=== PATIENT | female | born 1990 | race Caucasian/White ===

== ENCOUNTER 2016-10-11 08:10 | Emergency (ER) | payer SELFPAY ==
[~2016-10-11] VITALS: Ht 162.6 cm; Wt 92.5 kg
[~2016-10-11 08:10] MED LIST: FERROUS SULFAT325 MG PO; FERROUS SULFATE65 MG PO; IRON325 M2 PO; MOTRIN400 MG PO; PRENATAL VITAMI1 T10 PO
[2016-10-11 08:11] VITALS: BP 150/109
--- NOTE | 2016-10-11 08:13 | NUR ---
EKG completed by EMT in triage room.
--- NOTE | 2016-10-11 08:15 | NUR ---
Patient ambulated to bed 2. RN evaluating patient at bedside.
[2016-10-11] MEDS ORDERED: ASPIRIN 325 MG TAB PO ONE (08:20)
--- NOTE | 2016-10-11 08:20 | NUR ---
Dr. Kiser evaluating patient at bedside.
--- NOTE | 2016-10-11 08:20 | NUR ---
PATIENT PRESENTS TO ED WITH LEFT SIDED CHEST PAIN X1 WK RADIATING LEFT SHOULDER AND BACK PER PT--PRESSURE TYPE PAIN---DENIES TRAUMA OR INJURY . PT STATES WAS SEEN BY PMD BUT PAIN PERSIST . DENIES N/V/D; SKIN IS PINK/WARM/DRY; AAOX4 WITH EVEN AND STEADY GAIT; LUNGS CLEAR BL; HR EVEN AND REGULAR; PT DENIES ANY FEVER, CP, SOB, OR COUGH AT THIS TIME; PATIENT STATES PAIN OF 8/10 AT THIS TIME; VSS; PATIENT POSITIONED FOR COMFORT; HOB ELEVATED; BEDRAILS UP X2; BED DOWN. ER MD MADE AWARE OF PT STATUS.
--- NOTE | 2016-10-11 08:26 | NUR ---
sterile preparation technician at bedside for CXR.
--- NOTE | 2016-10-11 08:33 | NUR ---
X-Ray at bedside.
--- NOTE | 2016-10-11 09:15 | NUR ---
PT DENIES CP AT THIS TIME---NOW STATING SHE FEELS PAIN UNDER RIGHT BREAST --RIBS SHARP--- A/O X4 FULL CLEAR SPEECH, DENIES SOB---AWAITS LAB RESULTS
--- NOTE | 2016-10-11 10:15 | NUR ---
AMBULATORY TO AND FROM RESTROOM WITH STEADY GAIT---DENIES SOB, NO CP, NO HEADACHE--MD NOTIFIED.
--- NOTE | 2016-10-11 10:30 | NUR ---
SPOKE WITH PT---DC HOME
[2016-10-11 10:56] VITALS: BP 126/78
== END 2016-10-11 10:54 | disposition home or self-care (01) ==
LOC: MED 08:21
PROC: 4A02X4Z Measurement of Cardiac Electrical Activity, External Approach (ICD-10-PCS; principal; 2016-10-11)
DX: R07.89 Other chest pain (principal); F41.9 Anxiety disorder, unspecified; Z87.19 Personal history of other diseases of the digestive system; Z32.02 Encounter for pregnancy test, result negative

== ENCOUNTER 2017-01-14 05:35 | Emergency (ER) | payer MEDICAID ==
[~2017-01-14] VITALS: Ht 162.6 cm; Wt 90.8 kg
[2017-01-14 05:52] VITALS: BP 139/80
--- NOTE | 2017-01-14 06:04 | NUR ---
PT IS 26/F BIB SELF TO ED WITH C/O L UPPER ABD PAIN WHICH RADIATES TO CHEST TO LEFT ARM AND BACK X 1 WK.. PT STATES NO MED HX. DENIES N/V/D; SKIN IS PINK/WARM/DRY; AAOX4 WITH EVEN AND STEADY GAIT; LUNGS CLEAR BL; HR EVEN AND REGULAR; PT DENIES ANY FEVER, CP, SOB, OR COUGH AT THIS TIME; PATIENT STATES PAIN OF 8/10 AT THIS TIME; VSS; PATIENT POSITIONED FOR COMFORT; HOB ELEVATED; BEDRAILS UP X2; BED DOWN. ER MD MADE AWARE OF PT STATUS.
--- NOTE | 2017-01-14 06:04 | NUR ---
PT TAKEN TO BED 8
[2017-01-14] MEDS ORDERED: KETOROLAC 60 MG/2 ML VIAL IM ONE (06:10)
[2017-01-14] MEDS ORDERED: FAMOTIDINE 20 MG TAB PO ONE (06:10)
[2017-01-14] MEDS ORDERED: ONDANSETRON 4 MG ODT PO ONE (06:10)
--- NOTE | 2017-01-14 06:10 | NUR ---
Dr. Todd evaluating patient at bedside.
[2017-01-14 06:35] LABS: BASOPHILS # (AUTO) 0.2 K/uL (0.00-0.22); BASOPHILS % (AUTO) 2.7 % (0.0-2.0); EOSINOPHILS # (AUTO) 0.1 K/uL (0-0.4); EOSINOPHILS % (AUTO) 2.1 % (0.0-4.0); HEMOGLOBIN 9.3 g/dL (12.0-16.0); LYMPHOCYTES # (AUTO) 1.9 K/uL (2.5-16.5); LYMPHOCYTES % (AUTO) 33.7 % (20.5-51.1); MEAN CORPUSCULAR HEMOGLOBIN 30 pg (27-31); MEAN CORPUSCULAR HGB CONC 33 g/dL (33-37); MEAN CORPUSCULAR VOLUME 90 fL (80-94); MONOCYTES # (AUTO) 0.4 K/uL (0.8-1.0); MONOCYTES % (AUTO) 7.5 % (1.7-9.3); NEUTROPHILS # (AUTO) 3.1 K/uL (1.8-7.7); PLATELET COUNT (AUTO) 273 K/uL (140-450); RED BLOOD CELL COUNT(AUTO) 3.13 MIL/uL (4.20-5.40); RED CELL DISTRIBUTION WIDTH 12.4 % (11.6-13.7); WHITE BLOOD COUNT (AUTO) 5.7 K/uL (4.8-10.8)
[2017-01-14 06:47] LABS: ALBUMIN 3.6 g/dL (3.4-5.0); ANION GAP 12.3 (8-16); CARBON DIOXIDE 28.3 mmol/L (21-32); CREATININE 0.6 mg/dL (0.6-1.3); POTASSIUM 3.6 mmol/L (3.5-5.1); TOTAL BILIRUBIN 0.4 mg/dL (0.0-1.0); TOTAL PROTEIN, SERUM 6.6 g/dL (6.4-8.2)
[2017-01-14] MEDS ORDERED: FAMOTIDINE 20 MG TAB ONE (06:51)
--- NOTE | 2017-01-14 07:11 | NUR ---
Pt report given to DAY NURSE EMMIE RN FOR Transfer of care at this time.
--- NOTE | 2017-01-14 07:17 | NUR ---
RECEIVED LYING IN BED, PT AAO STILL IN PAIN NO VOMITTING NOTED, BLANKET GIVEN, SKIN WARM TO TOUCH RESP. EVEN AND UNLABORED.
--- NOTE | 2017-01-14 07:33 | NUR ---
Patient discharged with v/s stable. Written and verbal after care instructions given and explained. Patient alert, oriented and verbalized understanding of instructions. Ambulatory with steady gait. All questions addressed prior to discharge. ID band removed. Patient advised to follow up with PMD. Rx of NORCO AND ZOFRAN given. Patient educated on indication of medication including possible reaction and side effects. Opportunity to ask questions provided and answered.ENCOURAGED FLUID INTAKE AND FIBER INTAKE AND PT AGREED WITH IT.
[2017-01-14 07:34] VITALS: BP 136/77
== END 2017-01-14 07:33 | disposition home or self-care (01) ==
LOC: MED 05:35
DX: K80.80 Other cholelithiasis without obstruction (principal); R07.89 Other chest pain; R03.0 Elevated blood-pressure reading, without diagnosis of hypertension
CPT/HCPCS: 36415; 80053; 81025; 83690; 84484; 85025; 93005; 96372; 99285; J1885; S0119

== ENCOUNTER 2018-06-15 07:55 | Emergency (ER) | payer MEDICAID ==
[~2018-06-15] VITALS: Ht 157.5 cm; Wt 95.3 kg
[2018-06-15 08:09] VITALS: BP 124/89
[2018-06-15 10:08] VITALS: BP 124/89
== END 2018-06-15 10:05 | disposition home or self-care (01) ==
LOC: MED 07:55
DX: Z32.01 Encounter for pregnancy test, result positive (principal); I10 Essential (primary) hypertension
CPT/HCPCS: 36415; 84702; 99283

== ENCOUNTER 2018-06-18 18:01 | Emergency (ER) | payer MEDICAID ==
[~2018-06-18] VITALS: Ht 157.5 cm; Wt 97.1 kg
[2018-06-18 18:19] VITALS: BP 141/95
--- NOTE | 2018-06-18 18:41 | NUR ---
ACCOMPANIED BY C/O VAGINAL BLEEDING 1HR NOW 3 [facility]/1 HR WITH RIGHT SIDED SUPRAPUBIC PAIN----X TODAY DENIES INJURY, DENIES DYSURIA LMP 04/02/2018 . DENIES N/V/D; SKIN IS PINK/WARM/DRY; AAOX4 WITH EVEN AND STEADY GAIT; LUNGS CLEAR BL; HR EVEN AND REGULAR; PT DENIES ANY FEVER, CP, SOB, OR COUGH AT THIS TIME; VSS; PATIENT POSITIONED FOR COMFORT; HOB ELEVATED; BEDRAILS UP X2; BED DOWN. ER MD MADE AWARE OF PT STATUS.
--- NOTE | 2018-06-18 19:15 | NUR ---
REPORT RECEIVED FROM EZIO LITTLE
[2018-06-18 19:46] LABS: BASOPHILS # (AUTO) 0.1 K/uL (0.00-0.22); BASOPHILS % (AUTO) 0.7 % (0.0-2.0); EOSINOPHILS # (AUTO) 0.1 K/uL (0-0.4); EOSINOPHILS % (AUTO) 1.8 % (0.0-4.0); HEMATOCRIT 36.6 % (36-48); HEMOGLOBIN 12.4 g/dL (12.0-16.0); LYMPHOCYTES # (AUTO) 2.9 K/uL (2.5-16.5); LYMPHOCYTES % (AUTO) 36.9 % (20.5-51.1); MEAN CORPUSCULAR HEMOGLOBIN 31 pg (27-31); MEAN CORPUSCULAR HGB CONC 34 g/dL (33-37); MEAN CORPUSCULAR VOLUME 90.6 fL (80-94); MONOCYTES # (AUTO) 0.6 K/uL (0.8-1.0); MONOCYTES % (AUTO) 6.9 % (1.7-9.3); NEUTROPHILS # (AUTO) 4.3 K/uL (1.8-7.7); NEUTROPHILS % (AUTO) 53.7 % (42.2-75.2); PLATELET COUNT (AUTO) 245 K/uL (140-450); RED BLOOD CELL COUNT(AUTO) 4.04 MIL/uL (4.20-5.40); RED CELL DISTRIBUTION WIDTH 13.2 % (11.6-13.7)
[2018-06-18] MEDS ORDERED: ONDANSETRON 4 MG/2 ML VIAL IVP ONE (21:15)
[2018-06-18] MEDS ORDERED: NACL 0.9% 1,000 ML IV SCH (21:15)
[2018-06-18] MEDS ORDERED: MORPHINE SULFATE 2 MG/ML SYR IVP ONE (21:15)
[2018-06-18 22:59] VITALS: BP 125/75
--- NOTE | 2018-06-18 23:04 | NUR ---
Patient discharged with v/s stable. Written and verbal after care instructions given and explained. Patient alert, oriented and verbalized understanding of instructions. Ambulatory with steady gait. All questions addressed prior to discharge. ID band removed. Patient advised to follow up with PMD. Rx of NONE given. Patient educated on indication of medication including possible reaction and side effects. Opportunity to ask questions provided and answered.
[2018-06-18 23:06] LABS: APPEARANCE,URINE CLEAR (CLEAR); BILIRUBIN,URINE NEGATIVE (NEGATIVE); BLOOD, URINE 3+ (NEGATIVE); COLOR,URINE YELLOW (YELLOW); LEUKOCYTE ESTERASE ,URINE NEGATIVE (NEGATIVE); NITRITE, URINE NEGATIVE (NEGATIVE); UGLUCOSE NEGATIVE (NEGATIVE)
[2018-06-18 23:38] LABS: RBC,URINE 3-10 (FEW) /HPF (0-5); WBC,URINE 0-5 (RARE) /HPF (0-5)
== END 2018-06-18 23:03 | disposition home or self-care (01) ==
LOC: MED 18:01
DX: O03.9 Complete or unspecified spontaneous abortion without complication (principal); I10 Essential (primary) hypertension
CPT/HCPCS: 36415; 76817; 81001; 81025; 84702; 85025; 86900; 86901; 96374; 96375; 99285; J2270; J2405; J7030; Q0092

== ENCOUNTER 2019-03-06 16:56 | Emergency (ER) | payer MEDICAID ==
[~2019-03-06] VITALS: Ht 162.6 cm; Wt 99.3 kg
[2019-03-06 17:02] VITALS: BP 148/92
--- NOTE | 2019-03-06 17:28 | NUR ---
28 Y FEMALE BIB SELF C/O LLQ ABDOMINAL AND PELVIC PAIN RADIATING TO BACK X3 WKS, TOOK IBUPROFEN AT 1300, NO RELIEF. -N/V/D. DENIES DYSURIA. ABDOMEN SOFT AND ROUND, BOWEL SOUNDS ACTIVE IN ALL 4 QUADRANTS. PAIN 8/10. VSS AT THIS TIME. PT AA0X4. BED IS DOWN, LOCKED, BED RAIL X 1, ERMD TO SEE PT. PMH-DENIES RX-DENIES
--- NOTE | 2019-03-06 17:55 | NUR ---
DR CHAMPAGNE BEDSIDE
[2019-03-06] MEDS ORDERED: KETOROLAC 60 MG/2 ML VIAL IM ONE (18:00)
--- NOTE | 2019-03-06 18:07 | NUR ---
US AND LAB AT BEDSIDE
[2019-03-06 18:43] LABS: BILIRUBIN,URINE NEGATIVE (NEGATIVE); BLOOD, URINE 3+ (NEGATIVE); COLOR,URINE YELLOW (YELLOW); LEUKOCYTE ESTERASE ,URINE NEGATIVE (NEGATIVE); NITRITE, URINE NEGATIVE (NEGATIVE); PH,URINE 5.5 (5.0-9.0); UGLUCOSE NEGATIVE (NEGATIVE)
[2019-03-06 18:45] LABS: APPEARANCE,URINE HAZY (CLEAR)
[2019-03-06 18:48] LABS: RBC,URINE 11-20 (MOD) /HPF (0-5)
[2019-03-06 18:49] LABS: WBC,URINE 0-5 /HPF (0-5)
[2019-03-06 18:54] LABS: ANION GAP 14.8 (8-16); CARBON DIOXIDE 25.8 mmol/L (21-32); CREATININE 0.7 mg/dL (0.6-1.3); POTASSIUM 3.6 mmol/L (3.5-5.1)
[2019-03-06 19:00] LABS: ALBUMIN 4.4 g/dL (3.4-5.0); TOTAL BILIRUBIN 0.2 mg/dL (0.0-1.0)
[2019-03-06 19:09] LABS: BASOPHILS % (AUTO) 0.6 % (0.0-2.0); EOSINOPHILS # (AUTO) 0.1 K/uL (0-0.4); EOSINOPHILS % (AUTO) 1.2 % (0.0-4.0); HEMOGLOBIN 13.4 g/dL (12.0-16.0); LYMPHOCYTES % (AUTO) 38.1 % (20.5-51.1); MEAN CORPUSCULAR HEMOGLOBIN 31 pg (27-31); MEAN CORPUSCULAR HGB CONC 34 g/dL (33-37); MEAN CORPUSCULAR VOLUME 89.6 fL (80-94); MONOCYTES # (AUTO) 0.5 K/uL (0.8-1.0); MONOCYTES % (AUTO) 6.3 % (1.7-9.3); NEUTROPHILS # (AUTO) 4.3 K/uL (1.8-7.7); NEUTROPHILS % (AUTO) 53.8 % (42.2-75.2); PLATELET COUNT (AUTO) 292 K/uL (140-450); RED BLOOD CELL COUNT(AUTO) 4.35 MIL/uL (4.20-5.40); RED CELL DISTRIBUTION WIDTH 13.1 % (11.6-13.7)
--- NOTE | 2019-03-06 19:13 | NUR ---
VSS AT THIS TIME. PT AA0X4. PT LAYING IN BED
[2019-03-06 20:15] VITALS: BP 133/88
== END 2019-03-06 20:15 | disposition home or self-care (01) ==
LOC: MED 16:56
DX: K80.20 Calculus of gallbladder without cholecystitis without obstruction (principal); K59.00 Constipation, unspecified; R91.8 Other nonspecific abnormal finding of lung field; I10 Essential (primary) hypertension
CPT/HCPCS: 36415; 74176; 76830; 80053; 81001; 81025; 85025; 96372; 99284; J1885; Q0092

== ENCOUNTER 2019-09-07 08:34 | Emergency (ER) | payer MEDICAID ==
[~2019-09-07] VITALS: Ht 162.6 cm; Wt 97.1 kg
[2019-09-07 08:55] VITALS: BP 147/92
--- NOTE | 2019-09-07 09:01 | NUR ---
PATIENT AMBULATED WITH STEADY GAIT TO BED 11.
--- NOTE | 2019-09-07 09:14 | NUR ---
28/F BIB SELF C/O VAGINAL BLEEDING WITH LOWER ABDOMINAL CRAMPING, BURNING URINATION X 2 DAYS. PT STATED BROWN AT FIRST, TODAY PINK SPOT. LMP 04/15/19. A1. DENIES PMH. PATIENT STATES PAIN OF 3/10 AT THIS TIME.PATIENT POSITIONED FOR COMFORT; HOB ELEVATED; BEDRAILS UP X1; BED DOWN. ER MD MADE AWARE OF PT STATUS.
[2019-09-07 09:33] LABS: BASOPHILS # (AUTO) 0.1 K/uL (0.00-0.22); BASOPHILS % (AUTO) 0.7 % (0.0-2.0); EOSINOPHILS # (AUTO) 0.1 K/uL (0-0.4); EOSINOPHILS % (AUTO) 0.9 % (0.0-4.0); HEMATOCRIT 38.3 % (36-48); HEMOGLOBIN 12.9 g/dL (12.0-16.0); LYMPHOCYTES # (AUTO) 2.1 K/uL (2.5-16.5); LYMPHOCYTES % (AUTO) 27.6 % (20.5-51.1); MEAN CORPUSCULAR HEMOGLOBIN 31 pg (27-31); MEAN CORPUSCULAR HGB CONC 34 g/dL (33-37); MEAN CORPUSCULAR VOLUME 91.2 fL (80-94); MONOCYTES # (AUTO) 0.5 K/uL (0.8-1.0); MONOCYTES % (AUTO) 6.1 % (1.7-9.3); NEUTROPHILS # (AUTO) 4.8 K/uL (1.8-7.7); NEUTROPHILS % (AUTO) 64.7 % (42.2-75.2); PLATELET COUNT (AUTO) 238 K/uL (140-450); RED BLOOD CELL COUNT(AUTO) 4.21 MIL/uL (4.20-5.40); RED CELL DISTRIBUTION WIDTH 13.2 % (11.6-13.7); WHITE BLOOD COUNT (AUTO) 7.5 K/uL (4.8-10.8)
[2019-09-07 09:34] LABS: APPEARANCE,URINE CLEAR (CLEAR); BILIRUBIN,URINE NEGATIVE (NEGATIVE); BLOOD, URINE 3+ (NEGATIVE); COLOR,URINE ORANGE (YELLOW); LEUKOCYTE ESTERASE ,URINE 2+ (NEGATIVE); NITRITE, URINE NEGATIVE (NEGATIVE); PH,URINE 7.5 (5.0-9.0); UGLUCOSE NEGATIVE (NEGATIVE)
[2019-09-07 09:37] LABS: ANION GAP 13.7 (8-16); CARBON DIOXIDE 24.2 mmol/L (21-32); CREATININE 0.7 mg/dL (0.6-1.3); POTASSIUM 3.9 mmol/L (3.5-5.1)
[2019-09-07 09:42] LABS: RBC,URINE 11-20 (MOD) /HPF (0-5)
--- NOTE | 2019-09-07 10:17 | NUR ---
US AT BEDSIDE.
[2019-09-07 11:40] VITALS: BP 134/86
--- NOTE | 2019-09-07 11:40 | NUR ---
Patient discharged with v/s stable. Written and verbal after care instructions given and explained. Patient verbalized understanding. Ambulatory with steady gait. All questions addressed prior to discharge. Advised to follow up with PMD.
== END 2019-09-07 11:40 | disposition home or self-care (01) ==
LOC: MED 08:34
DX: O20.8 Other hemorrhage in early pregnancy (principal); Z3A.01 Less than 8 weeks gestation of pregnancy; I10 Essential (primary) hypertension
CPT/HCPCS: 36415; 76801; 80048; 81001; 81025; 84702; 85025; 86900; 86901; 87086; 99284; Q0092

== ENCOUNTER 2019-09-15 07:33 | Emergency (ER) | payer MEDICAID ==
[~2019-09-15] VITALS: Ht 162.6 cm; Wt 96.8 kg
[2019-09-15 07:37] VITALS: BP 141/94
--- NOTE | 2019-09-15 07:43 | NUR ---
Patient ambulated to bed 12. RN evaluating patient at bedside.
--- NOTE | 2019-09-15 07:59 | NUR ---
A1 LMP 03/2019 C/O VAG BLEEDING AND BILAT LOWER ABD PAIN X 2 WEEKS. PT STATES SHE WAS SEEN AT [facility] 1 WEEK AGO AND WAS TOLD SHE WAS 7 WEEKS . ABDOMEN SOFT, FLAT, NON TENDER. DENIES DYSURIA. PT PROVIDED WITH GOWN AND PROVIDED A URINE SAMPLE. BED IN LOW POSITION, SIDE RAIL UP X1
[2019-09-15] MEDS ORDERED: ACETAMINOPHEN 325 MG TAB PO ONE (08:15)
--- NOTE | 2019-09-15 08:15 | NUR ---
LAB AT BEDSIDE
[2019-09-15 08:28] LABS: BASOPHILS % (AUTO) 0.5 % (0.0-2.0); EOSINOPHILS # (AUTO) 0.1 K/uL (0-0.4); HEMATOCRIT 37.9 % (36-48); HEMOGLOBIN 12.7 g/dL (12.0-16.0); LYMPHOCYTES % (AUTO) 24.5 % (20.5-51.1); MEAN CORPUSCULAR HEMOGLOBIN 31 pg (27-31); MEAN CORPUSCULAR HGB CONC 34 g/dL (33-37); MEAN CORPUSCULAR VOLUME 91.2 fL (80-94); MONOCYTES # (AUTO) 0.5 K/uL (0.8-1.0); MONOCYTES % (AUTO) 6.5 % (1.7-9.3); NEUTROPHILS # (AUTO) 5.4 K/uL (1.8-7.7); NEUTROPHILS % (AUTO) 67.5 % (42.2-75.2); PLATELET COUNT (AUTO) 235 K/uL (140-450); RED BLOOD CELL COUNT(AUTO) 4.15 MIL/uL (4.20-5.40); RED CELL DISTRIBUTION WIDTH 13.1 % (11.6-13.7); WHITE BLOOD COUNT (AUTO) 8.1 K/uL (4.8-10.8)
[2019-09-15 08:33] LABS: APPEARANCE,URINE CLEAR (CLEAR); BILIRUBIN,URINE NEGATIVE (NEGATIVE); BLOOD, URINE 3+ (NEGATIVE); COLOR,URINE YELLOW (YELLOW); LEUKOCYTE ESTERASE ,URINE NEGATIVE (NEGATIVE); NITRITE, URINE NEGATIVE (NEGATIVE); UGLUCOSE NEGATIVE (NEGATIVE)
--- NOTE | 2019-09-15 08:33 | NUR ---
US tech at bedside for exam.
[2019-09-15 08:42] LABS: WBC,URINE 0-5 /HPF (0-5)
--- NOTE | 2019-09-15 09:50 | NUR ---
PT RESTING IN BED
[2019-09-15 10:14] VITALS: BP 135/91
--- NOTE | 2019-09-15 10:14 | NUR ---
PT NOT HOMELESS, HOMELESS ASSESSMENT NOT DONE
== END 2019-09-15 10:15 | disposition home or self-care (01) ==
LOC: MED 07:33
DX: O20.8 Other hemorrhage in early pregnancy (principal); Z3A.08 8 weeks gestation of pregnancy
CPT/HCPCS: 36415; 76801; 81001; 81025; 84702; 85025; 86900; 86901; 99284; Q0092

== ENCOUNTER 2019-10-06 21:40 | Emergency (ER) | payer MEDICAID ==
[~2019-10-06] VITALS: Ht 162.6 cm; Wt 92.5 kg
[2019-10-06 21:50] VITALS: BP 117/80
--- NOTE | 2019-10-06 21:50 | NUR ---
PT AMBULATED TO BED #12
--- NOTE | 2019-10-06 22:04 | NUR ---
29 Y/O FEMALE PRESENTS TO ED, C/O SORETHROAT X2 DAYS. PT STATES COUGHING FOR PAST 2 DAYS AND STARTED HAVING SORENESS ON THROAT. PT HAS DIFFICULTY SPEAKING DUE TO SORETHROAT. PT DENIES ANY SOB/DIFFICULTY BREATHING. LUNG SOUNDS BILAT CLEAR. DENIES ANY CHEST PAIN. PT STATES HAVING FEVER PRIOR COMING TO ED. PT DENIES N/V/D. PT VSS. ERMD AWARE. WILL CONTINUE TO MONITOR.
--- NOTE | 2019-10-06 22:18 | NUR ---
NASAL FLU SWAB COLLECTED AND SENT TO LAB
[2019-10-06] MEDS ORDERED: KETOROLAC 15 MG/ML VIAL IM ONE (22:50)
[2019-10-06 23:00] VITALS: BP 117/80
--- NOTE | 2019-10-06 23:00 | NUR ---
PT DISCHARGED WITH PAPERWORK. EDUCATED PT REGARDING MEDICATIONS AND D/C INSTRUCTIONS. PT VERBALIZED UNDERSTANDING OF TEACHING. TOLD PT TO FOLLOW UP WITH PCP AND WHEN TO RETURN TO ED. PT AT STABLE CONDITION. ALL QUESTIONS ANSWERED.
== END 2019-10-06 23:00 | disposition home or self-care (01) ==
LOC: MED 21:40
DX: J11.1 Influenza due to unidentified influenza virus with other respiratory manifestations (principal); J02.9 Acute pharyngitis, unspecified
CPT/HCPCS: 87804; 96372; 99283; J1885

== ENCOUNTER 2019-10-10 16:36 | Emergency (ER) | payer MEDICAID ==
[~2019-10-10] VITALS: Ht 162.6 cm; Wt 93.4 kg
[2019-10-10 16:53] VITALS: BP 139/92
--- NOTE | 2019-10-10 17:14 | NUR ---
PATIENT PRESENTS TO ED WITH ABD PAIN, VAG BLEED X 1 HR AGO, 11 WEEKS GESTATION. . PATIENT STATES ABDOMINAL CRAMPING 9 OF 0/10 AT THIS TIME; VSS; PATIENT POSITIONED FOR COMFORT; HOB ELEVATED; BEDRAILS UP X2; BED DOWN. ER MD MADE AWARE OF PT STATUS.
[2019-10-10] MEDS ORDERED: HYDROcodone/APAP 5/325 MG 1 TAB TAB PO ONE ×2 (17:20→18:40)
[2019-10-10] MEDS ORDERED: ONDANSETRON 4 MG ODT PO ONE (17:20)
--- NOTE | 2019-10-10 17:22 | NUR ---
URINE COLLECTED AND SENT TO LAB
[2019-10-10] MEDS ORDERED: ACETAMINOPHEN 325 MG TAB PO ONE (17:40)
--- NOTE | 2019-10-10 17:50 | NUR ---
US AT BEDSIDE
[2019-10-10] MEDS ORDERED: ACETAMINOPHEN EXTRA STRENGTH 500 MG TAB PO ONE (17:55)
[2019-10-10 18:06] LABS: BASOPHILS % (AUTO) 0.2 % (0.0-2.0); EOSINOPHILS # (AUTO) 0.3 K/uL (0-0.4); EOSINOPHILS % (AUTO) 3.5 % (0.0-4.0); HEMATOCRIT 38.3 % (36-48); HEMOGLOBIN 12.7 g/dL (12.0-16.0); LYMPHOCYTES # (AUTO) 2.3 K/uL (2.5-16.5); LYMPHOCYTES % (AUTO) 23.3 % (20.5-51.1); MEAN CORPUSCULAR HEMOGLOBIN 30 pg (27-31); MEAN CORPUSCULAR HGB CONC 33 g/dL (33-37); MEAN CORPUSCULAR VOLUME 91.1 fL (80-94); MONOCYTES # (AUTO) 0.8 K/uL (0.8-1.0); MONOCYTES % (AUTO) 7.8 % (1.7-9.3); NEUTROPHILS # (AUTO) 6.5 K/uL (1.8-7.7); NEUTROPHILS % (AUTO) 65.2 % (42.2-75.2); PLATELET COUNT (AUTO) 256 K/uL (140-450); RED BLOOD CELL COUNT(AUTO) 4.21 MIL/uL (4.20-5.40); WHITE BLOOD COUNT (AUTO) 9.9 K/uL (4.8-10.8)
--- NOTE | 2019-10-10 18:36 | NUR ---
PATIENT STILL IN PAIN, NOT RELEASED BY TYLENOL, CERTIFIED NUCLEAR MEDICINE TECHNOLOGIST OLIVEIRA MADE AWARE, SPOKE TO PATIENT ABOUT NORCO INDICATION AND SIDE EFFECTS, PATIENT AGREED TO TAKE AT THIS TIME.
--- NOTE | 2019-10-10 18:53 | NUR ---
Pelvic exam performed by OSORIO OLIVEIRA at bedside for entire examination. Patient tolerated procedure WELL. Patient assisted to position of comfort after examination. Female Retail Merchandising Coordinator accompanied female patient for Pelvic Exam BY ME.
[2019-10-10 19:12] LABS: BILIRUBIN,URINE NEGATIVE (NEGATIVE); BLOOD, URINE 3+ (NEGATIVE); LEUKOCYTE ESTERASE ,URINE TRACE (NEGATIVE); NITRITE, URINE NEGATIVE (NEGATIVE); PH,URINE 6.5 (5.0-9.0); UGLUCOSE NEGATIVE (NEGATIVE)
[2019-10-10 19:19] LABS: APPEARANCE,URINE BLOODY (CLEAR); COLOR,URINE RED (YELLOW)
[2019-10-10 19:22] LABS: RBC,URINE TOO NUMEROUS TO COUN /HPF (0-5); WBC,URINE NONE SEEN /HPF (0-5)
[2019-10-10 19:45] VITALS: BP 139/92
== END 2019-10-10 19:45 | disposition home or self-care (01) ==
LOC: MED 16:36
DX: O20.0 Threatened abortion (principal)
CPT/HCPCS: 36415; 76801; 81001; 81025; 84702; 85025; 86900; 86901; 99284; Q0092; Q0162

== ENCOUNTER 2019-10-11 16:55 | Observation (INO) | payer MEDICAID ==
[~2019-10-11] VITALS: Ht 162.6 cm; Wt 92.1 kg
[2019-10-11 17:04] VITALS: BP 150/89
--- NOTE | 2019-10-11 17:10 | NUR ---
PT BIBA C/O VAGINAL BLEEDING FOR 2 DAYS. PT WAS SEEN IN [facility] FOR THE SAME SX YESTERDAY. PT REPORTS HAVING INCREASED PAIN AND BLEEDING TODAY AND CHANGES 5 PADS HOURLY. PATIENT STATES PAIN OF 10/10 AT THIS TIME; VSS; PATIENT POSITIONED FOR COMFORT; HOB ELEVATED; BEDRAILS UP X2; BED DOWN. ER MD MADE AWARE OF PT STATUS. PT IS ON MONITOR.
[2019-10-11] MEDS ORDERED: fentaNYL 0.05 MG/ML VIAL IVP ONE (17:15)
[2019-10-11] MEDS ORDERED: ONDANSETRON 4 MG/2 ML VIAL IVP ONE (17:15)
[2019-10-11] MEDS ORDERED: NACL 0.9% 1,000 ML IV ONE (17:15)
--- NOTE | 2019-10-11 17:27 | NUR ---
U/S IS AT BEDSIDE.
[2019-10-11 18:34] LABS: BASOPHILS % (AUTO) 0.2 % (0.0-2.0); EOSINOPHILS # (AUTO) 0.3 K/uL (0-0.4); EOSINOPHILS % (AUTO) 2.8 % (0.0-4.0); HEMATOCRIT 37.7 % (36-48); HEMOGLOBIN 12.2 g/dL (12.0-16.0); LYMPHOCYTES # (AUTO) 2.4 K/uL (2.5-16.5); LYMPHOCYTES % (AUTO) 19.7 % (20.5-51.1); MEAN CORPUSCULAR HEMOGLOBIN 30 pg (27-31); MEAN CORPUSCULAR HGB CONC 32 g/dL (33-37); MEAN CORPUSCULAR VOLUME 91.1 fL (80-94); MONOCYTES # (AUTO) 0.7 K/uL (0.8-1.0); MONOCYTES % (AUTO) 5.5 % (1.7-9.3); NEUTROPHILS # (AUTO) 8.8 K/uL (1.8-7.7); NEUTROPHILS % (AUTO) 71.8 % (42.2-75.2); PLATELET COUNT (AUTO) 260 K/uL (140-450); RED BLOOD CELL COUNT(AUTO) 4.14 MIL/uL (4.20-5.40); RED CELL DISTRIBUTION WIDTH 12.9 % (11.6-13.7); WHITE BLOOD COUNT (AUTO) 12.3 K/uL (4.8-10.8)
--- NOTE | 2019-10-11 18:45 | NUR ---
PT IS RESTING IN BED WITH EYES OPENED. VSS. IS AT BEDSIDE.
[2019-10-11 18:52] LABS: ANION GAP 16.5 (8-16); CARBON DIOXIDE 24.5 mmol/L (21-32); CREATININE 0.6 mg/dL (0.6-1.3)
[2019-10-11 18:58] LABS: ALBUMIN 3.4 g/dL (3.4-5.0); TOTAL BILIRUBIN 0.2 mg/dL (0.0-1.0)
--- NOTE | 2019-10-11 19:18 | NUR ---
Pt report given to ANABEL Alexander. Transfer of care at this time.
[2019-10-11] MEDS ORDERED: ACETAMINOPHEN 325 MG TAB PO PRN (19:20)
[2019-10-11] MEDS ORDERED: DOCUSATE SODIUM 100 MG GELCAP PO PRN (19:20)
[2019-10-11] MEDS ORDERED: HYDROmorphone PFS 2 MG/ML SYR IVP PRN (19:20)
[2019-10-11] MEDS ORDERED: ONDANSETRON 4 MG/2 ML VIAL IM/IVP PRN (19:20)
[2019-10-11] MEDS ORDERED: MISOPROSTOL 200 MCG TAB PO ONE (19:55)
[2019-10-11 20:36] LABS: PROTHROMBIN TIME 9.4 secs (10.8-13.4)
[2019-10-11 20:44] LABS: MAGNESIUM 1.9 mg/dL (1.8-2.4); PHOSPHORUS 3.9 mg/dL (2.5-4.9); THYROID STIMULATING HORMONE 1.91 uIU/mL (0.34-3.74)
[2019-10-11 20:48] LABS: BILIRUBIN,URINE NEGATIVE (NEGATIVE); BLOOD, URINE 3+ (NEGATIVE); LEUKOCYTE ESTERASE ,URINE 1+ (NEGATIVE); NITRITE, URINE POSITIVE (NEGATIVE); PH,URINE 7.5 (5.0-9.0); UGLUCOSE NEGATIVE (NEGATIVE)
[2019-10-11 20:50] LABS: APPEARANCE,URINE BLOODY (CLEAR); COLOR,URINE RED (YELLOW)
[2019-10-11 20:53] LABS: BARBITURATE, URINE NEG. ng/ml (NEG <=200); BENZODIAZEPINE, URINE NEG. ng/mL (NEG <=200); CANNABINOID, URINE NEG. ng/mL (NEG <=50); COCAINE, URINE NEG. ng/mL (NEG <=300); OPIATE, URINE NEG. ng/mL (NEG <=2000); PHENCYCLIDINE SCREEN,URINE NEG. ng/mL (NEG <=25); RBC,URINE TOO NUMEROUS TO COUN /HPF (0-5)
[2019-10-11 20:54] LABS: WBC,URINE NONE SEEN /HPF (0-5)
[2019-10-11 21:25] VITALS: BP 133/89
--- NOTE | 2019-10-11 21:25 | NUR ---
Patient will be admitted to care of CECIL LONG. Admited to M/S. Will go to room 125B. Belongings list completed. Report to ANABEL SPRING.
--- NOTE | 2019-10-11 21:25 | NUR ---
ADMITTED A 29 YEAR OLD FEMALE FROM ED VIA WHEELCHAIR ACCOMPANIED BY ED NURSE. ALERT AND ORIENTED X4. NO APPARENT RESPIRATORY DISTRESS NOTED. VISIBLE CHEST RISE AND FALL NOTED. ABLE TO AMBULATE WITH STEADY GAIT. WITH PERIPHERAL IV ON LEFT AC 18 GAUGE RUNNING IVF. REVIEWED CURRENT PLAN OF CARE. VERBALIZED UNDERSTANDING. WILL CONTINUE TO MONITOR. Addendum: 10/12/19 at 0210 by Myla Sánchez RN BED ON LOW POSITION. CALL LIGHT WITHIN REACH. ORIENTED TO ROOM, ROOMMATE AND HOSPITAL ROUTINE.
[2019-10-11] MEDS ORDERED: DEXTROSE 5% 50 ML IV ONE (23:08)
[2019-10-11] MEDS ORDERED: cefTRIAXone 1,000 MG VIAL ONE (23:08)
[2019-10-11] MEDS ORDERED: MISOPROSTOL 200 MCG TAB ONE (23:20)
--- NOTE | 2019-10-11 23:20 | NUR ---
PATIENT AWAKE IN BED WITH . NOTED WITH EPISODES OF CRYING. EMOTIONAL SUPPORT GIVEN. WILL CONTINUE TO MONITOR.
[2019-10-11] MEDS: NACL 0.9% 1,000 ML IV SCH (23:26)
[2019-10-12] VITALS: BP 117/69
--- NOTE | 2019-10-12 01:15 | NUR ---
PATIENT ASLEEP IN BED. NO APPARENT DISTRESS NOTED. VISIBLE CHEST RISE AND FALL NOTED. WILL CONTINUE TO MONITOR.
--- NOTE | 2019-10-12 03:07 | NUR ---
PATIENT EATING IN BED. NO APPARENT DISTRESS NOTED. DENIES PAIN NOR DISCOMFORT. WILL CONTINUE TO MONITOR.
--- NOTE | 2019-10-12 05:05 | NUR ---
PATIENT ASLEEP IN BED. NO APPARENT DISTRESS NOTED. VISIBLE CHEST RISE AND FALL NOTED. WILL CONTINUE TO MONITOR.
[2019-10-12] MEDS: NACL 0.9% 1,000 ML IV SCH (05:06)
[2019-10-12 06:05] LABS: BASOPHILS % (AUTO) 0.3 % (0.0-2.0); EOSINOPHILS # (AUTO) 0.4 K/uL (0-0.4); EOSINOPHILS % (AUTO) 3.3 % (0.0-4.0); HEMATOCRIT 34.3 % (36-48); HEMOGLOBIN 11.5 g/dL (12.0-16.0); LYMPHOCYTES # (AUTO) 2.4 K/uL (2.5-16.5); LYMPHOCYTES % (AUTO) 21.1 % (20.5-51.1); MEAN CORPUSCULAR HEMOGLOBIN 30 pg (27-31); MEAN CORPUSCULAR HGB CONC 33 g/dL (33-37); MEAN CORPUSCULAR VOLUME 90.4 fL (80-94); MONOCYTES # (AUTO) 0.8 K/uL (0.8-1.0); MONOCYTES % (AUTO) 6.8 % (1.7-9.3); NEUTROPHILS # (AUTO) 7.7 K/uL (1.8-7.7); NEUTROPHILS % (AUTO) 68.5 % (42.2-75.2); PLATELET COUNT (AUTO) 236 K/uL (140-450); RED CELL DISTRIBUTION WIDTH 12.7 % (11.6-13.7); WHITE BLOOD COUNT (AUTO) 11.3 K/uL (4.8-10.8)
[2019-10-12 06:51] LABS: ANION GAP 13.9 (8-16); CARBON DIOXIDE 25.2 mmol/L (21-32); CREATININE 0.7 mg/dL (0.6-1.3); POTASSIUM 4.1 mmol/L (3.5-5.1)
[2019-10-12 06:58] LABS: CHOL/HDL RATIO 4.1 (1-4.5); MAGNESIUM 1.7 mg/dL (1.8-2.4); PHOSPHORUS 4.2 mg/dL (2.5-4.9)
[2019-10-12] MEDS ORDERED: BENZONATATE 100 MG CAPLF PO PRN (07:20)
--- NOTE | 2019-10-12 07:28 | NUR ---
ENDORSED TO AM SHIFT NURSE FOR CONTINUITY OF CARE.
--- NOTE | 2019-10-12 07:29 | NUR ---
SHIFT REPORT RECEIVED FROM FULFILLMENT MAIL CLERK NURSE. PT IS IN BED IN STABLE CONDITION. NO DISTRESS NOTED. NO COMPLAINS OF PAIN. CALL LIGHT IN REACH.
[2019-10-12 08:00] VITALS: BP 115/69
--- NOTE | 2019-10-12 08:26 | NUR ---
PATIENT HAS BEEN SCREENED AND CATEGORIZED LOW NUTRITION RISK. PATIENT WILL BE SEEN WITHIN 7 DAYS OF ADMISSION. 10/18/[address]
[2019-10-12] MEDS ORDERED: MISOPROSTOL 200 MCG TAB PO SCH ×2 (09:00→11:00)
[2019-10-12] MEDS ORDERED: LACTOBACILLUS RHAMNOSUS GG 1 EACH CAP PO SCH (09:00)
--- NOTE | 2019-10-12 09:30 | NUR ---
PT IS STABLE AT THIS TIME. NO COMPLAINS OF PAIN OR DISTRESS NOTED . CALL LIGHT IN REACH.
[2019-10-12] MEDS ORDERED: NITR100C7 PO (11:06)
[2019-10-12] MEDS ORDERED: IBUP-2213 PO (11:06)
--- NOTE | 2019-10-12 11:30 | NUR ---
PT WAS DISCHARGED TO DAY. PT WAS STEADY AT DISCHARGE, ALERT AND WALKED WITH A STEADY GAIT. PT WILL FOLLOW UP WITH PCP. NO COMPLAINS OF PAIN. SKIN INTACT. DISCHARGE INSTRUCTIONS GIVEN TO PATIENT. BELONGINGS WITH PATIENT. IV REMOVED. NO ACTIVE BLEEDING NOTED. ID BAND REMOVED. PRESCRIPTION SENT TO PHARMACY. PT WAS ACCOMPANIED BY SPOUSE UPON DISCHARGE.
--- NOTE | 2019-10-12 11:51 | NUR ---
Wire Straightening Machine Operator Note: Basic Screen: Yes High Risk DC Screen Erhard: ROCIO Gallegos Relationship: Pre-Admission Living Arrangements: Lives with Other Prior ADL Independent Current Home Health Name/Tel: N/A Current DME/02 Name/Tel: [facility] Current Hospice Name/Tel: N/A Current Dialysis Name/Tel: N/A Healthcare Decision Maker: Patient Advance Directive No Physician Orders for Life Sustaining Treatment Form No Patient/Family Have Educational Needs No Information Taught: Advance Directive Person Taught: Patient Teaching Tools: Verbal Factors Affecting Learning: None Participation Level: Refused Evaluation: Verbalizes Understanding Needs Additional Education: No Discipline: Case Mgt/Social Svcs Tentative Discharge Plan/Destination: No Needs Identified Will require assistance post discharge: No Referred to Frame Aligner: No Tentative Discharge Plan Summary: Patient is a 29-year-old femalae admitted for spontaneous . Patient has PMHX of hypertension. Patient was admitted from home where she lives with her and two kids. SW met with patient at bedside to verify demographics. Patient reports no history of mental health and no history of substance abuse. Patient's tentative discharge plan is to return home. No further needs identified. Signature: FLORIN Ferrera Date: Oct 12, 2019 Time: 11:51
== END 2019-10-12 11:30 | disposition home or self-care (01) ==
LOC: MED 16:55 → MMU 19:19 → INTOOBSV 19:19
PROVIDERS: ADMIT General Practice; ATTEND General Practice
DX: O03.9 Complete or unspecified spontaneous abortion without complication (principal); O16.1 Unspecified maternal hypertension, first trimester; O99.111 Other diseases of the blood and blood-forming organs and certain disorders involving the immune mechanism complicating pregnancy, first trimester; D72.829 Elevated white blood cell count, unspecified; Z3A.10 10 weeks gestation of pregnancy; Z79.899 Other long term (current) drug therapy
CPT/HCPCS: 36415; 71045; 76801; 80048; 80053; 80061; 80305; 81001; 83036; 83735; 84100; 84134; 84443; 84702; 85025; 85610; 85730; 87081; 87086; 96361; 96365; 96375; 99285; G0378; J0696; J2405; J3010; J7030; J7060; Q0092; 88300; 96374